=== PATIENT | female | born 1995 | race Two or more races ===

== ENCOUNTER 2016-09-19 21:26 | Observation (INO) | payer MEDICAID ==
[~2016-09-19] VITALS: Ht 157.5 cm; Wt 81.6 kg
[2016-09-19] MEDS ORDERED: TERBUTALINE SULFATE 1 MG/ML 1ML VIAL SC ONE ×2 (22:04→22:15)
== END 2016-09-19 23:14 | disposition home or self-care (01) | DRG 955 ==
LOC: LDRP 21:26
PROVIDERS: ADMIT Obstetrics & Gynecology; ATTEND Obstetrics & Gynecology
DX: O26.899 Other specified pregnancy related conditions, unspecified trimester (principal); R10.9 Unspecified abdominal pain; Z3A.00 Weeks of gestation of pregnancy not specified
CPT/HCPCS: 59025; 81002; 96372; G0378; J3105

== ENCOUNTER 2016-10-11 22:40 | Observation (INO) | payer MEDICAID ==
[2016-10-11 23:18] LABS: Urine Bilirubin Negative (Negative); Urine Blood Negative /uL (Negative); Urine Color Yellow (Yellow); Urine Glucose Normal (Normal); Urine Ketone Negative (Negative); Urine Mucus FEW (None Seen); Urine Nitrite Negative (Negative); Urine RBC <1 /hpf (0 - 4); Urine Squamous Epithelial Cell MOD /hpf (<5); Urine Urobilinogen Normal (Negative)
== END 2016-10-11 23:45 | disposition home or self-care (01) | DRG 566 ==
LOC: LDRP 22:40
PROVIDERS: ADMIT Specialist; ATTEND Specialist
DX: O62.9 Abnormality of forces of labor, unspecified (principal); Z3A.39 39 weeks gestation of pregnancy
CPT/HCPCS: 59025; 81001; 81002; 87086; G0378

== ENCOUNTER 2016-10-17 11:35 | Observation (INO) | payer MEDICAID | END 2016-10-17 13:05 | disposition home or self-care (01) | DRG 566 | LOC: LDRP 11:35 | PROVIDERS: ADMIT Specialist; ATTEND Specialist | DX: O26.893 Other specified pregnancy related conditions, third trimester (principal); N85.8 Other specified noninflammatory disorders of uterus; O48.0 Post-term pregnancy; Z3A.40 40 weeks gestation of pregnancy | CPT/HCPCS: 59025; 76818; 81002; G0378 ==

== ENCOUNTER 2016-10-20 23:10 | Inpatient (IN) | payer MEDICAID ==
[~2016-10-20] VITALS: Ht 157.5 cm; Wt 83.5 kg
[2016-10-21] VITALS (18 sets, daily range): BP systolic 0–155; BP diastolic 0–95
[2016-10-21] MEDS ORDERED: TERBUTALINE SULFATE 1 MG/ML 1ML VIAL SC ONE ×2 (04:29→04:45)
[2016-10-21] MEDS ORDERED: LACTATED RINGER'S 1,000 ML IV SCH ×2 (04:30→12:23)
[2016-10-21 05:02] LABS: Urine RBC None Seen /hpf (0 - 4)
[2016-10-21 05:21] LABS: Basophils # (auto) 0 uL; Basophils % (auto) 0.2 % (0.0-2.0); Eosinophils # (auto) 0 uL; Eosinophils % (auto) 0.1 % (0.0-7.0); Hematocrit 36.2 % (36.0-46.0); Hemoglobin 12.3 g/dL (12.2-16.2); Lymphocytes # (auto) 2.2 uL; Lymphocytes % (auto) 16.9 % (10.0-50.0); Mean Corpuscular Hemoglobin 31.7 pg (28.0-32.0); Mean Corpuscular Volume 93.4 fL (80.0-100.0); Mean Platelet Volume 8.6 fL (7.4-10.4); Monocytes # (auto) 0.6 uL; Monocytes % (auto) 4.4 % (0.0-12.0); Neutrophils # (auto) 10.1 uL; Neutrophils % (auto) 78.4 % (37.0-80.0); Platelet Count (auto) 229 10^3/uL (140-450); Red Cell Distribution Width 13.7 % (11.6-16.0); White Blood Cell 12.9 10^3/uL (4.4-10.8)
[2016-10-21 05:28] LABS: Albumin 2.6 g/dL (3.4-5.0); BUN/Creatinine Ratio 9.9; Calcium 8.4 mg/dL (8.5-10.1); Potassium 3.7 mmol/L (3.5-5.1)
[2016-10-21 05:31] LABS: Bilirubin, Total 0.2 mg/dL (0.2-1.0); Total Protein 6.4 g/dL (6.4-8.2)
[2016-10-21 05:34] LABS: Urine Bilirubin Negative (Negative); Urine Blood Negative /uL (Negative); Urine Color Yellow (Yellow); Urine Glucose Normal (Normal); Urine Ketone Negative (Negative); Urine Nitrite Negative (Negative); Urine Urobilinogen Normal (Negative); Urine pH 6.5 (5.0-8.0)
[2016-10-21] MEDS ORDERED: fentaNYL CITRATE 100 MCG/2 ML VL ONE (07:19)
[2016-10-21] MEDS ORDERED: ePHEDrine SULFATE 50 MG/ML AMP ONE (07:19)
[2016-10-21] MEDS ORDERED: MORPHINE SULF(PF) 0.5MG/ML 10ML VIAL ONE (07:19)
[2016-10-21] MEDS ORDERED: MIDAZOLAM HCL 1MG/1ML-2 ML VIAL ONE (07:19)
[2016-10-21] MEDS ORDERED: SODIUM CHLORIDE LOCK 20 ML ONE (07:19)
[2016-10-21] MEDS ORDERED: ceFAZolin 1GM VL ONE (07:19)
[2016-10-21] MEDS ORDERED: OXYTOCIN 10 UNIT/ML 10ML VIAL ONE (07:19)
[2016-10-21] MEDS ORDERED: TETRACAINE 1% INJ 2 ML VIAL IJ ONE (07:24)
[2016-10-21 07:25] LABS: INR 0.86 (0.9-1.15); Prothrombin Time 9.3 sec (9.37-12.3)
[2016-10-21] MEDS ORDERED: SUCCINYLCHOLINE CHLORIDE 20 MG/ML 10ML VIAL IV ONE (07:25)
[2016-10-21] MEDS ORDERED: CARBOPROST TROMETHAMINE 250 MCG/1ML VIAL IM ONE ×2 (08:12→08:21)
[2016-10-21] MEDS ORDERED: LACT. RINGERS/OXYTOCIN 20UNITS 1,000 ML IV SCH ×2 (08:45→12:23)
[2016-10-21] MEDS ORDERED: METOCLOPRAMIDE HCL 5MG/ml INJ 2ml VIAL IV ONE (08:45)
[2016-10-21] MEDS ORDERED: MORPHINE SULF INJ 2 MG/ML SYRINGE 1ML IV PRN (08:45)
[2016-10-21] MEDS ORDERED: ONDANSETRON HCL 4 MG/2 ML VIAL IV PRN (08:45)
[2016-10-21] MEDS ORDERED: HYDROmorphone HCL 2 MG/ML VL IV PRN ×2 (08:45)
[2016-10-21] MEDS ORDERED: KETOROLAC TROMETH 30 MG/ML 1ML VIAL IV ONE (08:45)
[2016-10-21] MEDS ORDERED: HYDROmorphone HCL 2 MG/ML VL IV ONE (08:45)
[2016-10-21] MEDS ORDERED: RHO (D) IMMUNE GLOBULIN 300 MCG INJ IM ONE (13:00)
[2016-10-21 13:31] LABS: Basophils # (auto) 0 uL; Eosinophils # (auto) 0 uL; Hematocrit 34.1 % (36.0-46.0); Hemoglobin 11.7 g/dL (12.2-16.2); Lymphocytes # (auto) 0.7 uL; Lymphocytes % (auto) 4.6 % (10.0-50.0); Mean Corpuscular Hgb Conc. 34.3 g/dL (32.0-36.0); Mean Corpuscular Volume 93.4 fL (80.0-100.0); Mean Platelet Volume 8.7 fL (7.4-10.4); Monocytes # (auto) 0.2 uL; Neutrophils # (auto) 14.8 uL; Neutrophils % (auto) 94.4 % (37.0-80.0); Platelet Count (auto) 255 10^3/uL (140-450); White Blood Cell 15.7 10^3/uL (4.4-10.8)
[2016-10-21] MEDS ORDERED: ceFAZolin 1GM/50ML D5W 50 ML IV ONE (14:00)
[2016-10-21] MEDS: ceFAZolin 1GM/50ML D5W 50 ML IV SCH ×2 (14:20→22:00)
[2016-10-21] MEDS: KETOROLAC TROMETH 30 MG/ML 1ML VIAL IV PRN (14:35)
[2016-10-21] MEDS ORDERED: PREN-153 OR (15:10)
[2016-10-21 19:32] LABS: Basophils # (auto) 0 uL; Eosinophils # (auto) 0 uL; Hematocrit 31.3 % (36.0-46.0); Hemoglobin 10.7 g/dL (12.2-16.2); Lymphocytes # (auto) 1.2 uL; Mean Corpuscular Hemoglobin 31.9 pg (28.0-32.0); Mean Corpuscular Hgb Conc. 34.1 g/dL (32.0-36.0); Mean Corpuscular Volume 93.6 fL (80.0-100.0); Mean Platelet Volume 8.4 fL (7.4-10.4); Monocytes # (auto) 0.6 uL; Monocytes % (auto) 4.2 % (0.0-12.0); Neutrophils # (auto) 13.6 uL; Neutrophils % (auto) 87.8 % (37.0-80.0); Platelet Count (auto) 244 10^3/uL (140-450); White Blood Cell 15.5 10^3/uL (4.4-10.8)
[2016-10-22] VITALS (9 sets, daily range): BP systolic 111–130; BP diastolic 58–77
[2016-10-22] MEDS: ceFAZolin 1GM/50ML D5W 50 ML IV SCH (05:58)
[2016-10-22 06:30] LABS: Basophils # (auto) 0 uL; Basophils % (auto) 0.2 % (0.0-2.0); Eosinophils # (auto) 0 uL; Eosinophils % (auto) 0.1 % (0.0-7.0); Hematocrit 29.3 % (36.0-46.0); Hemoglobin 10.1 g/dL (12.2-16.2); Lymphocytes # (auto) 2.2 uL; Lymphocytes % (auto) 20.2 % (10.0-50.0); Mean Corpuscular Hemoglobin 32.2 pg (28.0-32.0); Mean Corpuscular Hgb Conc. 34.5 g/dL (32.0-36.0); Mean Corpuscular Volume 93.3 fL (80.0-100.0); Mean Platelet Volume 7.8 fL (7.4-10.4); Monocytes # (auto) 0.7 uL; Monocytes % (auto) 6.3 % (0.0-12.0); Neutrophils % (auto) 73.2 % (37.0-80.0); Platelet Count (auto) 213 10^3/uL (140-450); Red Cell Distribution Width 14.2 % (11.6-16.0)
[2016-10-22] MEDS: KETOROLAC TROMETH 30 MG/ML 1ML VIAL IV PRN (07:20)
[2016-10-22] MEDS ORDERED: BISACODYL 10 MG RECT SUPP PR PRN (10:45)
[2016-10-22] MEDS ORDERED: HYDROcodone-ACET 10/325MG TAB PO PRN (10:45)
[2016-10-22] MEDS ORDERED: IBUPROFEN 800 MG TAB PO PRN (10:45)
[2016-10-22] MEDS ORDERED: DOCUSATE CALCIUM 240 MG CAP PO ONE (11:00)
[2016-10-22] MEDS: SIMETHICONE 80 MG CHEWABLE TABLET PO SCH ×3 (12:27→22:15)
[2016-10-23 04:00] VITALS: BP 117/74
[2016-10-23 08:14] VITALS: BP 120/73
[2016-10-23] MEDS: DOCUSATE CALCIUM 240 MG CAP PO SCH (10:00)
[2016-10-23] MEDS: SIMETHICONE 80 MG CHEWABLE TABLET PO SCH ×3 (12:00→22:30)
[2016-10-23 12:18] VITALS: BP 119/80
[2016-10-23] MEDS ORDERED: SODIUM CHLOR 0.9% PF (SALINE LOCK) 10ML VIAL IV SCH (14:00)
[2016-10-23 16:05] VITALS: BP 127/82
[2016-10-23 19:30] VITALS: BP 132/85
[2016-10-23 23:30] VITALS: BP 114/61
[2016-10-24 03:30] VITALS: BP 125/73
[2016-10-24] MEDS: SIMETHICONE 80 MG CHEWABLE TABLET PO SCH (05:52)
[2016-10-24] MEDS ORDERED: MEASLES, MUMPS & RUBELLA VAC(MMRII) 0.5ML SC ONE ×2 (06:15→06:45)
[2016-10-24 08:11] VITALS: BP 118/74
[2016-10-24] MEDS: DOCUSATE CALCIUM 240 MG CAP PO SCH (09:41)
== END 2016-10-24 09:50 | disposition home or self-care (01) | DRG 540 ==
LOC: LDRP 23:10 → OBSVTOIN 23:10 → LDRP 10-21 05:06
PROVIDERS: ADMIT Obstetrics & Gynecology; ATTEND Obstetrics & Gynecology
PROC: 10D00Z1 Extraction of Products of Conception, Low, Open Approach (ICD-10-PCS; principal; 2016-10-21 07:41)
PROC: 30233S1 Transfusion of Nonautologous Globulin into Peripheral Vein, Percutaneous Approach (ICD-10-PCS; 2016-10-22)
DX: O76 Abnormality in fetal heart rate and rhythm complicating labor and delivery (principal); O99.824 Streptococcus B carrier state complicating childbirth; O77.0 Labor and delivery complicated by meconium in amniotic fluid; Z37.0 Single live birth; Z3A.40 40 weeks gestation of pregnancy
CPT/HCPCS: 36415; 51702; 59025; 76818; 80053; 80307; 81001; 81002; 85025; 85610; 85730; 86850; 86900; 86901; 90384; 94760; 96361; 96366; 96372; 96375; G0378; J0330; J0690; J1885; J2250; J2590